=== PATIENT | female | born 1950 | race Asian ===

== ENCOUNTER 2018-10-18 08:35 | Outpatient (CLI) | payer OTHER | END 2018-10-18 23:06 | disposition home or self-care (01) | LOC: RAD 08:35 | DX: J45.909 Unspecified asthma, uncomplicated (principal); I10 Essential (primary) hypertension; E78.00 Pure hypercholesterolemia, unspecified; K21.9 Gastro-esophageal reflux disease without esophagitis; E66.9 Obesity, unspecified; E55.9 Vitamin D deficiency, unspecified ==

== ENCOUNTER 2018-12-19 12:15 | Outpatient (CLI) | payer OTHER | END 2018-12-19 19:56 | disposition home or self-care (01) | LOC: RESP 12:15 | DX: J41.1 Mucopurulent chronic bronchitis (principal); R07.9 Chest pain, unspecified | CPT/HCPCS: 93005 ==

== ENCOUNTER 2018-12-21 10:03 | Outpatient (CLI) | payer OTHER ==
[2018-12-21 10:17] LABS: PLATELET COUNT 209 K/uL (152-353)
== END 2018-12-21 19:28 | disposition home or self-care (01) ==
LOC: LABW 10:03
PROVIDERS: Family Medicine
DX: J44.9 Chronic obstructive pulmonary disease, unspecified (principal); R07.89 Other chest pain; Z79.899 Other long term (current) drug therapy
CPT/HCPCS: 36415; 82550; 84443; 84484; 85007; 85027

== ENCOUNTER 2019-01-06 09:27 | Emergency (ER) | payer OTHER ==
[~2019-01-06] VITALS: Ht 165.1 cm; Wt 107.0 kg
[2019-01-06 09:38] VITALS: TEMP 97.5
[2019-01-06 10:17] LABS: PLATELET COUNT 206 K/uL (152-353)
[2019-01-06 10:23] LABS: POTASSIUM 3.6 mmol/L (3.6-5.2)
[2019-01-06 11:07] VITALS: BP 168/79
== END 2019-01-06 11:07 | disposition home or self-care (01) ==
LOC: ED 09:27
PROVIDERS: Emergency Medicine
DX: R07.89 Other chest pain (principal); K85.80 Other acute pancreatitis without necrosis or infection
CPT/HCPCS: 80053; 81000; 82550; 83036; 83690; 84484; 85027; 93005; 99283

== ENCOUNTER 2019-02-06 17:10 | Outpatient (CLI) | payer OTHER | END 2019-02-06 19:32 | disposition home or self-care (01) | LOC: RAD 17:10 | DX: R05 Cough (principal) ==

== ENCOUNTER 2019-02-10 09:29 | Outpatient (CLI) | payer OTHER ==
[2019-02-10 09:54] LABS: PLATELET COUNT 198 K/uL (152-353)
[2019-02-10 10:00] LABS: POTASSIUM 3.3 mmol/L (3.6-5.2)
== END 2019-02-10 22:32 | disposition home or self-care (01) ==
LOC: LABW 09:29
PROVIDERS: Specialist
DX: R93.1 Abnormal findings on diagnostic imaging of heart and coronary circulation (principal); R06.02 Shortness of breath
CPT/HCPCS: 36415; 80053; 85027

== ENCOUNTER 2019-03-21 08:42 | Emergency (ER) | payer OTHER ==
[~2019-03-21] VITALS: Ht 165.1 cm; Wt 100.7 kg
[2019-03-21 09:54] LABS: PLATELET COUNT 191 K/uL (152-353)
[2019-03-21 10:01] LABS: POTASSIUM 3.1 mmol/L (3.6-5.2)
[2019-03-21 10:57] VITALS: BP 120/62; TEMP 98.2
== END 2019-03-21 10:57 | disposition home or self-care (01) ==
LOC: ED 08:42
PROVIDERS: Family Medicine
DX: L20.89 Other atopic dermatitis (principal); E87.6 Hypokalemia
CPT/HCPCS: 80053; 81000; 85027; 87502; 87651; 96372; 99283

== ENCOUNTER 2019-05-09 09:23 | Outpatient (CLI) | payer OTHER | END 2019-05-09 23:30 | disposition home or self-care (01) | LOC: CT 09:23 | DX: Z87.891 Personal history of nicotine dependence (principal) | CPT/HCPCS: G0297-TC ==

== ENCOUNTER 2020-03-05 08:53 | Outpatient (CLI) | payer OTHER ==
[2020-03-05 10:05] LABS: POTASSIUM 3.4 mmol/L (3.6-5.2)
== END 2020-03-05 22:57 | disposition home or self-care (01) ==
LOC: LABW 08:53
PROVIDERS: ATTEND Specialist
DX: M25.571 Pain in right ankle and joints of right foot (principal); I42.8 Other cardiomyopathies
CPT/HCPCS: 36415; 80048

== ENCOUNTER 2020-03-18 08:19 | Outpatient (CLI) | payer OTHER ==
[2020-03-18 09:10] LABS: POTASSIUM 3.7 mmol/L (3.6-5.2)
== END 2020-03-18 19:46 | disposition home or self-care (01) ==
LOC: LABW 08:19
PROVIDERS: ATTEND Nurse Practitioner Adult Health
DX: E87.6 Hypokalemia (principal); Z09 Encounter for follow-up examination after completed treatment for conditions other than malignant neoplasm
CPT/HCPCS: 36415; 80048

== ENCOUNTER 2020-03-18 15:26 | Outpatient (CLI) | payer OTHER ==
[2020-03-18 16:17] LABS: PLATELET COUNT 214 K/uL (152-353)
== END 2020-03-18 20:06 | disposition home or self-care (01) ==
LOC: LABW 15:26
PROVIDERS: ATTEND Family Medicine
DX: R07.89 Other chest pain (principal); Z79.899 Other long term (current) drug therapy
CPT/HCPCS: 82550; 84439; 84443; 84484; 85027; 93005

== ENCOUNTER 2020-04-02 08:09 | Outpatient (CLI) | payer OTHER ==
[2020-04-02 08:31] LABS: POTASSIUM 3.5 mmol/L (3.6-5.2)
== END 2020-04-02 20:51 | disposition home or self-care (01) ==
LOC: LABW 08:09
PROVIDERS: ATTEND Nurse Practitioner Adult Health
DX: E87.6 Hypokalemia (principal); Z09 Encounter for follow-up examination after completed treatment for conditions other than malignant neoplasm
CPT/HCPCS: 36415; 80048

== ENCOUNTER 2020-04-16 08:31 | Outpatient (CLI) | payer OTHER ==
[2020-04-16 09:23] LABS: POTASSIUM 3.9 mmol/L (3.6-5.2)
== END 2020-04-16 21:36 | disposition home or self-care (01) ==
LOC: LABW 08:31
PROVIDERS: ATTEND Nurse Practitioner Adult Health
DX: E87.6 Hypokalemia (principal); Z09 Encounter for follow-up examination after completed treatment for conditions other than malignant neoplasm
CPT/HCPCS: 36415; 80048

== ENCOUNTER 2020-05-21 08:45 | Outpatient (CLI) | payer OTHER ==
[2020-05-21 09:27] LABS: POTASSIUM 3.6 mmol/L (3.6-5.2)
== END 2020-05-21 21:16 | disposition home or self-care (01) ==
LOC: LABW 08:45
PROVIDERS: ATTEND Specialist
DX: R07.89 Other chest pain (principal); R35.8 Other polyuria
CPT/HCPCS: 36415; 80048; 93005

== ENCOUNTER 2020-06-25 08:11 | Outpatient (CLI) | payer OTHER ==
[2020-06-25 08:43] LABS: POTASSIUM 3.3 mmol/L (3.6-5.2)
== END 2020-06-25 22:16 | disposition home or self-care (01) ==
LOC: LABW 08:11
PROVIDERS: ATTEND Nurse Practitioner
DX: I25.10 Atherosclerotic heart disease of native coronary artery without angina pectoris (principal); I42.8 Other cardiomyopathies
CPT/HCPCS: 36415; 80048

== ENCOUNTER 2020-06-29 07:32 | Outpatient (CLI) | payer OTHER ==
[2020-06-29 08:20] LABS: POTASSIUM 3.7 mmol/L (3.6-5.2)
== END 2020-06-29 22:02 | disposition home or self-care (01) ==
LOC: LABW 07:32
PROVIDERS: ATTEND Family Medicine
DX: I10 Essential (primary) hypertension (principal); E87.6 Hypokalemia; R73.9 Hyperglycemia, unspecified; Z83.3 Family history of diabetes mellitus; R51.9 Headache, unspecified
CPT/HCPCS: 36415; 80053; 83036

== ENCOUNTER 2020-08-13 07:09 | Outpatient (CLI) | payer OTHER ==
[2020-08-13 08:32] LABS: POTASSIUM 4.3 mmol/L (3.6-5.2)
== END 2020-08-13 21:49 | disposition home or self-care (01) ==
LOC: LABW 07:09
PROVIDERS: ATTEND Specialist
DX: I10 Essential (primary) hypertension (principal); I42.8 Other cardiomyopathies
CPT/HCPCS: 36415; 80048

== ENCOUNTER 2020-08-25 07:31 | Outpatient (CLI) | payer OTHER ==
[2020-08-25 07:57] LABS: PLATELET COUNT 182 K/uL (152-353)
[2020-08-25 08:27] LABS: POTASSIUM 4.2 mmol/L (3.6-5.2)
== END 2020-08-25 19:20 | disposition home or self-care (01) ==
LOC: LABW 07:31
PROVIDERS: ATTEND Family Medicine
DX: I10 Essential (primary) hypertension (principal); E78.00 Pure hypercholesterolemia, unspecified; J44.9 Chronic obstructive pulmonary disease, unspecified; M25.471 Effusion, right ankle; E55.9 Vitamin D deficiency, unspecified; K21.9 Gastro-esophageal reflux disease without esophagitis
CPT/HCPCS: 36415; 80053; 80061; 81000; 82306; 83735; 84439; 84443; 84550; 85027

== ENCOUNTER 2020-09-20 09:21 | Outpatient (CLI) | payer OTHER | END 2020-09-20 19:08 | disposition home or self-care (01) | LOC: MAMMO 09:21 | PROVIDERS: ATTEND Family Medicine | DX: Z00.00 Encounter for general adult medical examination without abnormal findings (principal); Z12.31 Encounter for screening mammogram for malignant neoplasm of breast ==

== ENCOUNTER 2020-10-28 07:42 | Outpatient (CLI) | payer OTHER ==
[2020-10-28 08:09] LABS: POTASSIUM 4.3 mmol/L (3.6-5.2)
== END 2020-10-28 19:05 | disposition home or self-care (01) ==
LOC: LABW 07:42
PROVIDERS: ATTEND Nurse Practitioner
DX: I42.0 Dilated cardiomyopathy (principal)
CPT/HCPCS: 36415; 80048

== ENCOUNTER 2020-11-26 08:31 | Outpatient (CLI) | payer OTHER | END 2020-11-26 19:00 | disposition home or self-care (01) | LOC: CT 08:31 | PROVIDERS: ATTEND Internal Medicine Pulmonary Disease | DX: R91.8 Other nonspecific abnormal finding of lung field (principal) ==

== ENCOUNTER 2021-06-20 08:03 | Outpatient (CLI) | payer OTHER ==
[2021-06-20 08:32] LABS: PLATELET COUNT 179 K/uL (152-353)
[2021-06-20 09:19] LABS: POTASSIUM 4.4 mmol/L (3.6-5.2)
== END 2021-06-20 18:49 | disposition home or self-care (01) ==
LOC: LABW 08:03
PROVIDERS: ATTEND Family Medicine
DX: H10.10 Acute atopic conjunctivitis, unspecified eye (principal); I10 Essential (primary) hypertension; R73.03 Prediabetes; I25.10 Atherosclerotic heart disease of native coronary artery without angina pectoris; K21.9 Gastro-esophageal reflux disease without esophagitis; M25.579 Pain in unspecified ankle and joints of unspecified foot; E55.9 Vitamin D deficiency, unspecified
CPT/HCPCS: 36415; 80053; 80061; 81000; 82306; 83036; 83735; 84439; 84443; 84550; 85027

== ENCOUNTER 2021-09-02 08:19 | Outpatient (CLI) | payer OTHER ==
[2021-09-02 08:57] LABS: POTASSIUM 4.5 mmol/L (3.6-5.2)
== END 2021-09-02 21:34 | disposition home or self-care (01) ==
LOC: LABW 08:19
PROVIDERS: ATTEND Nurse Practitioner
DX: E78.49 Other hyperlipidemia (principal); I25.10 Atherosclerotic heart disease of native coronary artery without angina pectoris
CPT/HCPCS: 36415; 80048; 80061; 80076

== ENCOUNTER 2021-09-22 08:57 | Outpatient (CLI) | payer OTHER | END 2021-09-22 21:19 | disposition home or self-care (01) | LOC: MAMMO 08:57 | PROVIDERS: ATTEND Family Medicine | DX: Z12.31 Encounter for screening mammogram for malignant neoplasm of breast (principal); Z13.820 Encounter for screening for osteoporosis; N95.8 Other specified menopausal and perimenopausal disorders ==

== ENCOUNTER 2021-10-04 08:18 | Outpatient (CLI) | payer OTHER ==
[2021-10-04 08:36] LABS: PLATELET COUNT 191 K/uL (152-353)
[2021-10-04 08:58] LABS: POTASSIUM 4.5 mmol/L (3.6-5.2)
== END 2021-10-04 18:58 | disposition home or self-care (01) ==
LOC: LABW 08:18
PROVIDERS: ATTEND Family Medicine
DX: Z00.00 Encounter for general adult medical examination without abnormal findings (principal); R73.9 Hyperglycemia, unspecified; E78.00 Pure hypercholesterolemia, unspecified; I10 Essential (primary) hypertension
CPT/HCPCS: 36415; 80053; 80061; 81002; 83036; 84439; 84443; 85027

== ENCOUNTER 2021-11-10 15:19 | Outpatient (CLI) | payer OTHER | END 2021-11-10 19:17 | disposition home or self-care (01) | LOC: RAD 15:19 | PROVIDERS: ATTEND Family Medicine | DX: M54.59 Other low back pain (principal) ==

== ENCOUNTER 2021-11-24 08:22 | Outpatient (CLI) | payer OTHER | END 2021-11-24 19:11 | disposition home or self-care (01) | LOC: CT 08:22 | PROVIDERS: ATTEND Physician Assistant | DX: R91.1 Solitary pulmonary nodule (principal) ==

== ENCOUNTER 2022-09-21 15:54 | Outpatient (CLI) | payer OTHER | END 2022-09-21 19:03 | disposition home or self-care (01) | LOC: RAD 15:54 | PROVIDERS: ATTEND Internal Medicine Pulmonary Disease | DX: R06.09 Other forms of dyspnea (principal) ==

== ENCOUNTER 2022-09-25 09:40 | Outpatient (CLI) | payer OTHER | END 2022-09-25 20:18 | disposition home or self-care (01) | LOC: MAMMO 09:40 | PROVIDERS: ATTEND Family Medicine | DX: Z12.31 Encounter for screening mammogram for malignant neoplasm of breast (principal) ==